=== PATIENT | male | born 1990 | race Caucasian/White ===

== ENCOUNTER 2017-03-26 06:33 | Emergency (ER) | payer SELFPAY, OTHER ==
[2017-03-26] MEDS ORDERED: Morphine 4 MG/ML VIAL ONE (07:15)
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
[2017-03-26] MEDS ORDERED: Adacel (T-DAP) 0.5 ML VIAL ONE (07:51)
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
[2017-03-26] MEDS ORDERED: ISOVUE-370 76%-LOCM 1 ML ONE (17:08)
== END 2017-03-26 08:31 | disposition home or self-care (01) ==
LOC: ERS 06:33
DX: S00.532A Contusion of oral cavity, initial encounter (principal); S30.811A Abrasion of abdominal wall, initial encounter; S30.810A Abrasion of lower back and pelvis, initial encounter; S00.81XA Abrasion of other part of head, initial encounter; F17.220 Nicotine dependence, chewing tobacco, uncomplicated; V29.9XXA Motorcycle rider (driver) (passenger) injured in unspecified traffic accident, initial encounter; Y93.55 Activity, bike riding
CPT/HCPCS: 70450; 71260; 72125; 74177; 90471; 90715; 96374; J2270